=== PATIENT | female | born 1990 | race Asian ===

== ENCOUNTER 2019-01-04 12:04 | Inpatient (IN) | payer MEDICAID ==
[~2019-01-04] VITALS: Ht 164 cm; Wt 68.0 kg
[2019-01-04] MEDS ORDERED: OXYTOCIN/0.9 % SODIUM CHLORIDE 1,000 ML IV SCH (12:45)
[2019-01-04] MEDS ORDERED: TERBUTALINE SULFATE 1 MG/ML VIAL SUBCUT ONE (12:45)
[2019-01-04] MEDS ORDERED: LR 1,000 ML IV ONE (12:45)
[2019-01-04 13:06] LABS: BASOPHILS % (AUTO) 0.3 % (0.0-2.0); EOSINOPHILS # (AUTO) 0.1 K/uL (0.0-0.4); HEMATOCRIT 35.5 % (36-48); HEMOGLOBIN 11.4 g/dL (12.0-16.0); LYMPHOCYTES # (AUTO) 0.7 K/uL (1.0-5.5); LYMPHOCYTES % (AUTO) 9.6 % (20.5-51.5); MEAN CORPUSCULAR HEMOGLOBIN 25 pg (27-31); MEAN CORPUSCULAR HGB CONC 32 % (32-36); MEAN CORPUSCULAR VOLUME 78 fL (79.0-98.0); MONOCYTES # (AUTO) 0.5 K/uL (0.0-1.0); MONOCYTES % (AUTO) 7.3 % (1.7-9.3); NEUTROPHILS # (AUTO) 5.7 K/uL (1.8-7.7); NEUTROPHILS % (AUTO) 81.8 % (40.0-70.0); RED BLOOD CELL COUNT(AUTO) 4.58 MIL/uL (4.2-6.2); RED CELL DISTRIBUTION WIDTH 17.5 % (9.0-15.0)
[2019-01-04] MEDS ORDERED: AMPICILLIN SODIUM 2 GM in NS 100 ML IV ONE (13:45)
[2019-01-04 13:46] LABS: PLATELET COUNT (AUTO) 86 K/uL (130-430)
[2019-01-04] MEDS ORDERED: AMPICILLIN SODIUM 2 GM VIAL ONE (14:17)
[2019-01-04 15:17] VITALS: BP_SYST 108
[2019-01-04] MEDS: NALBUPHINE HCL 10 MG/ML AMP IVP PRN ×2 (15:23→18:26)
[2019-01-04] MEDS: AMPICILLIN SODIUM 1 GM in NS 50 ML IV SCH ×2 (18:00→22:00)
[2019-01-04] MEDS: LR 1,000 ML IV SCH ×2 (19:51→21:40)
[2019-01-04] MEDS ORDERED: fentaNYL CITRATE/PF 100 MCG/2 ML AMP ONE (19:53)
[2019-01-04] MEDS ORDERED: ROPIVACAINE HCL/PF 0.2% 200 ML ONE (19:53)
[2019-01-04] MEDS ORDERED: LR 500 ML IV ONE (20:02)
[2019-01-04] MEDS ORDERED: FENT2mCg/mL-ROPIVA0.2%/NS EPID 200 ML EP SCH (20:15)
[2019-01-04] MEDS ORDERED: OXYTOCIN 10 UNIT/ML VIAL IM ONE (22:30)
[2019-01-05] MEDS ORDERED: OXYTOCIN/0.9 % SODIUM CHLORIDE 1,000 ML IV ONE (01:29)
[2019-01-05] MEDS ORDERED: OXYTOCIN/0.9 % SODIUM CHLORIDE 1,000 ML IV SCH (01:29)
[2019-01-05] MEDS ORDERED: SENNOSIDES/DOCUSATE SODIUM 1 TAB TABLET(SENOKOT-S) PO PRN (01:30)
[2019-01-05] MEDS ORDERED: HYDROcodone/ACETAMIN 5-325 MG TAB (NORCO/ VICODIN) PO PRN (01:30)
[2019-01-05] MEDS ORDERED: DOCUSATE SODIUM 100 MG CAPSULE PO PRN (01:30)
[2019-01-05] MEDS ORDERED: WITCH HAZEL LEAF 1 MED.PAD MED.PAD TP PRN (01:30)
[2019-01-05] MEDS ORDERED: HYDROCORTISONE 0.5%, 28.35 GM TOPICAL CREAM TP PRN (01:30)
[2019-01-05] MEDS ORDERED: DIPH-TET-PERTUS Vaccine 0.5 ML VIAL (ADACEL) I.M. PRN (01:30)
[2019-01-05] MEDS ORDERED: DERMOPLAST SPRAY TP PRN (01:30)
[2019-01-05] MEDS ORDERED: ANUSOL 1 EA SUPP.RECT (PREPARATION H) RC PRN (01:30)
[2019-01-05] MEDS ORDERED: MEASLES,MUMPS&RUBELLA VACC/PF 12500 UNIT/0.5 ML VIAL SUBQ PRN (01:30)
[2019-01-05] MEDS ORDERED: OXYCODONE/ACETAMINOPHEN 5-325 TABLET PO PRN (01:30)
[2019-01-05] MEDS ORDERED: LANOLIN 7 GM OINT. TP PRN (01:30)
[2019-01-05] MEDS ORDERED: RHO(D) IMMUNE GLOBULIN/MALTOSE 1500 UNITS/1.3 ML (WINHRO) IM PRN (01:30)
[2019-01-05] MEDS ORDERED: METHYLERGONOVINE MALEATE 0.2 MG TABLET PO PRN (01:30)
[2019-01-05] MEDS ORDERED: MINERAL OIL 30 ML UDC PO ONE (07:17)
[2019-01-05 07:30] LABS: BASOPHILS % (AUTO) 0.2 % (0.0-2.0); MONOCYTES # (AUTO) 0.6 K/uL (0.0-1.0)
[2019-01-05 07:57] LABS: EOSINOPHILS % (AUTO) 0.2 % (0.0-4.0); HEMATOCRIT 29.9 % (36-48); LYMPHOCYTES # (AUTO) 0.6 K/uL (1.0-5.5); LYMPHOCYTES % (AUTO) 5.9 % (20.5-51.5); MEAN CORPUSCULAR HEMOGLOBIN 26 pg (27-31); MEAN CORPUSCULAR HGB CONC 34 % (32-36); MEAN CORPUSCULAR VOLUME 78 fL (79.0-98.0); MONOCYTES % (AUTO) 5.3 % (1.7-9.3); NEUTROPHILS # (AUTO) 9.6 K/uL (1.8-7.7); NEUTROPHILS % (AUTO) 88.4 % (40.0-70.0); RED BLOOD CELL COUNT(AUTO) 3.86 MIL/uL (4.2-6.2); RED CELL DISTRIBUTION WIDTH 17.7 % (9.0-15.0); WHITE BLOOD COUNT (AUTO) 10.8 K/uL (4.8-10.8)
[2019-01-05 08:20] LABS: PLATELET COUNT (AUTO) 146 K/uL (130-430)
[2019-01-05] MEDS ORDERED: IBUPROFEN 600 MG TABLET PO ONE (13:00)
[2019-01-05] MEDS ORDERED: IBUPROFEN 600 MG TABLET ONE (13:10)
[2019-01-05] MEDS: OXYCODONE/ACETAMINOPHEN 5-325 TABLET PO PRN (13:48)
[2019-01-06] MEDS ORDERED: IBUPROFEN 600 MG TABLET PO SCH
[2019-01-06] MEDS: OXYCODONE/ACETAMINOPHEN 5-325 TABLET PO PRN (08:58)
== END 2019-01-06 12:00 | disposition home or self-care (01) | DRG 560 ==
LOC: SPU 12:04 → OBSVTOIN 12:04
PROVIDERS: ADMIT Obstetrics & Gynecology; ATTEND Obstetrics & Gynecology
PROC: 10E0XZZ Delivery of Products of Conception, External Approach (ICD-10-PCS; principal; 2019-01-04)
PROC: 3E0R3BZ Introduction of Anesthetic Agent into Spinal Canal, Percutaneous Approach (ICD-10-PCS; 2019-01-04)
PROC: 00HU33Z Insertion of Infusion Device into Spinal Canal, Percutaneous Approach (ICD-10-PCS; 2019-01-04)
DX: O69.1XX0 Labor and delivery complicated by cord around neck, with compression, not applicable or unspecified (principal); R71.0 Precipitous drop in hematocrit; Z37.0 Single live birth; Z3A.38 38 weeks gestation of pregnancy
CPT/HCPCS: 36415; 81002-TC; 85025; 85049-TC; 86592; 86870; 86886; 86900; 86901; 90715; J0290; J2300; J2590; J3010; J7120